=== PATIENT | female | born 1960 | race Caucasian/White ===

== ENCOUNTER 2017-06-27 12:50 | Outpatient (CLI) | payer OTHER ==
--- NOTE | 2017-06-27 13:39 | MMO ---
BILATERAL SCREENING MAMMOGRAM: DATE: 06/27/17 HISTORY: 65-year-old female for screening mammography. COMPARISON: 06/26/16, 03/08/15, 01/11/14, 06/19/11. FINDINGS: Bilateral MLO and CC views of the breasts show scattered fibroglandular breast tissue. Bilateral vas cular calcifications are seen. There is no evidence of suspicious mass, suspicious cluster of microc alcifications, or area of architectural distortion. Interpretation of this mammogram was performed with the assistance of computer-aided detection. IMPRESSION: BIRADS 2: Benign Finding(s) Annual screening mammography is recommended. POS: [facility]
== END 2017-06-27 12:51 | disposition home or self-care (01) ==
LOC: SCSMAMMO 12:50
PROVIDERS: ATTEND Obstetrics & Gynecology
DX: Z12.31 Encounter for screening mammogram for malignant neoplasm of breast (principal)
CPT/HCPCS: 77067; G0202

== ENCOUNTER 2018-06-30 09:26 | Outpatient (CLI) | payer OTHER ==
--- NOTE | 2018-06-30 13:02 | MMO ---
SCREENING MAMMOGRAM: Date: 06-30-18 Comparison: 06-27-17, 06-26-16 FINDINGS: This study is interpreted with the assistance of computer aided detection. Images demonstrate fibroglandular tissue seen in both breasts. Bilateral breast vascular calcificatio n is seen. No newly developed masses or lesions seen. IMPRESSION: BIRADS category 2 - benign findings. POS: [facility]
== END 2018-06-30 09:27 | disposition home or self-care (01) ==
LOC: SCSMAMMO 09:26
PROVIDERS: ATTEND Obstetrics & Gynecology
DX: Z12.31 Encounter for screening mammogram for malignant neoplasm of breast (principal)
CPT/HCPCS: 77067

== ENCOUNTER 2019-11-11 08:02 | Outpatient (CLI) | payer OTHER ==
--- NOTE | 2019-11-11 08:37 | MMO ---
Bilateral MAMMO Bilat Screen [facility]. CLINICAL HISTORY: Patient is 59 years old and is seen for screening. The patient has no family history of breast cancer. The patient has no personal history of cancer. VIEWS: The views performed were: bilateral craniocaudal with tomosynthesis and bilateral mediolateral oblique with tomosynthesis. FILMS COMPARED: The present examination has been compared to prior imaging studies performed at [facility] on 06/26/2016, 06/27/2017 and 06/30/2018, and at [facility] on 06/30/2018. This study has been interpreted with the assistance of computer-aided detection. MAMMOGRAM FINDINGS: There are scattered fibroglandular densities. There are vascular calcifications seen in both breasts. There are no suspicious masses, suspicious calcifications, or new areas of architectural distortion. IMPRESSION: A ROUTINE FOLLOW-UP MAMMOGRAM IN 1 YEAR IS RECOMMENDED. THE RESULTS OF THIS EXAM WERE SENT TO THE PATIENT. ACR BI-RADS Category 2 - Benign finding MAMMOGRAPHY NOTE: 1. A negative mammogram report should not delay a biopsy if a dominant of clinically suspicious mass is present. 2. Approximately 10% to 15% of breast cancers are not detected by mammography. 3. Adenosis and dense breasts may obscure an underlying neoplasm. Reported by: SUDHA MONTGOMERY MD Electonically Signed: [id number]
--- NOTE | 2019-11-11 08:49 | BD ---
EXAM: Bone densitometry using DEXA HISTORY: 59 yo female. Screening for postmenopausal osteoporosis FINDINGS: L1--bone mineral density 0.857 g/sq cm; T score -1.2 ; Z score 0.2 L2--bone mineral density 0.846 g/sq cm; T score -1.7 ; Z score -0.1 L3--bone mineral density 0.842 g/sq cm; T score -2.2 ; Z score -0.6 L4--bone mineral density 0.765 g/sq cm; T score -2.7 ; Z score -1.1 Total L1-L4--bone mineral density 0.826 g/sq cm; T score -2.0 ; Z score -0.5 Left femoral neck--bone mineral density0.641; T score -1.9 ; Z score -0.5 Total proximal left femur--bone mineral density 0.790; T score -1.2 ; Z score -0.2 The 10 year fracture risk for a major osteoporotic fracture is 9.4% and for a hip fracture is 1.1%. IMPRESSION: Osteopenia
== END 2019-11-11 08:03 | disposition home or self-care (01) ==
LOC: BICMAMMO 08:02
PROVIDERS: ATTEND Family Medicine
DX: Z12.31 Encounter for screening mammogram for malignant neoplasm of breast (principal); M81.0 Age-related osteoporosis without current pathological fracture; M85.89 Other specified disorders of bone density and structure, multiple sites; Z79.890 Hormone replacement therapy
CPT/HCPCS: 77063; 77067; 77080

== ENCOUNTER 2020-11-17 07:57 | Outpatient (CLI) | payer OTHER | END 2020-11-17 07:58 | disposition home or self-care (01) | LOC: BICMAMMO 07:57 | PROVIDERS: ATTEND Physician Assistant | DX: Z12.31 Encounter for screening mammogram for malignant neoplasm of breast (principal) | CPT/HCPCS: 77063; 77067 ==

== ENCOUNTER 2023-04-26 15:04 | Outpatient (CLI) | payer OTHER | END 2023-04-26 15:05 | disposition home or self-care (01) | LOC: BICMAMMO 15:04 | PROVIDERS: ATTEND Family Medicine | DX: Z12.31 Encounter for screening mammogram for malignant neoplasm of breast (principal) | CPT/HCPCS: 77063; 77067 ==